=== PATIENT | male | born 1980 | race American Indian/Alaskan Native ===

== ENCOUNTER 2022-07-11 03:57 | Inpatient (IN) | payer SELFPAY ==
[2022-07-11] MEDS ORDERED: SODIUM CHLORIDE 0.9% 1000 ML 1,000 ML IV ONE (04:56)
[2022-07-11 05:30] LABS: Basophils % (Auto) 0.6 % (0.0-1.8); Eosinophils % (Auto) 0.2 % (0.0-4.3); Hematocrit 48.8 % (35.5-45.6); Hemoglobin 16.2 gm/dl (11.8-15.2); Lymphocytes # (Auto) 1.2 K/mm3 (1.2-5.4); Lymphocytes % (Auto) 13.3 % (13.4-35.0); Mean Corpuscular HGB Conc 33 % (32-34); Mean Corpuscular Volume 95 fl (84-94); Monocytes # (Auto) 0.4 K/mm3 (0.0-0.8); Monocytes % (Auto) 4.2 % (0.0-7.3); Platelet Count 229 K/mm3 (140-440); Red Blood Count 5.12 M/mm3 (3.65-5.03); Red Cell Distribution Width 13.7 % (13.2-15.2)
[2022-07-11 05:52] LABS: Alanine Aminotransferase 35 units/L (7-56); BUN/Creatinine Ratio 22; Blood Urea Nitrogen 28 mg/dL (9-20); Calcium 9.6 mg/dL (8.4-10.2); Hemolysis Index 24
--- NOTE | 2022-07-11 05:53 | Event Note ---
Date: 07/11/22 (') 42 years old with diabetes on insulin ran out of insulin and his blood sugar was high , no nausea or vomiting
--- NOTE | 2022-07-11 06:00 | XRay Report ---
CHEST 1 VIEW INDICATION / CLINICAL INFORMATION: Chest Pain. FINDINGS: SUPPORT DEVICES: None. HEART / MEDIASTINUM: No significant abnormality. LUNGS / PLEURA: No significant pulmonary or pleural abnormality. No pneumothorax. ADDITIONAL FINDINGS: No significant additional findings. IMPRESSION: 1. No acute findings. Signer Name: Ryan Tipton MD Signed: 07/11/2022 5:55 AM Workstation Name: [id number]
[2022-07-11 06:32] LABS: Color,Urine Colorless (Yellow)
[2022-07-11 06:33] LABS: RBC,Urine < 1.0 /HPF (0.0-6.0); WBC,Urine < 1.0 /HPF (0.0-6.0)
[2022-07-11 06:34] LABS: INR 0.98 (0.87-1.13)
[2022-07-11 06:41] LABS: Amphetamine Screen,Urine Negative; Benzodiazepines Screen,Urine Negative; Cannabinoid Screen,Urine Negative; Cocaine Screen,Urine Negative; Methadone Screen,Urine Negative; Opiate Screen,Urine Negative
[2022-07-11] MEDS ORDERED: SODIUM CHLORIDE 0.9% 1000 ML 2,000 ML IV ONE (06:57)
[2022-07-11] MEDS ORDERED: DEXTROSE 50% IN WATER (25GM) 50 ML SYRINGE IV PRN (06:57)
[2022-07-11] MEDS ORDERED: INSULIN REGULAR, HUMAN 100 UNITS/1 ML IV ONE (06:57)
[2022-07-11] MEDS ORDERED: METOCLOPRAMIDE 10 MG/2 ML INJ IV ONE (06:57)
[2022-07-11] MEDS ORDERED: INSULIN REGULAR, HUMAN 100 UNITS in SODIUM CHLORIDE 0.9% 99 ML IV SCH (07:00)
[2022-07-11] MEDS ORDERED: D5W/0.45% NACL/KCL 20 MEQ 20 MEQ/1,000 ML BAG IV SCH (07:00)
--- NOTE | 2022-07-11 07:02 | Emergency Department Report ---
ED General Adult HPI - General Chief complaint: Hyperglycemia Stated complaint: HYPERGLYCEMIA Time Seen by Provider: 07/11/22 06:52 Source: patient, EMS ( EMS documentation not available at time of chart dictation ), RN notes reviewed Mode of arrival: Stretcher Limitations: No Limitations - History of Present Illness Initial comments: The patient was evaluated in the emergency department for symptoms described in the history of present illness. He/she was evaluated in the context of the global COVID-19 pandemic, which necessitated consideration that the patient might be at risk for infection with the virus that causes COVID-19. Institutional protocols and algorithms that pertain to the evaluation of patients at risk for COVID-19 are in a state of rapid change based on information released by regulatory bodies including the CDC and federal and state organizations. These policies and algorithms were followed during the patient's care in the emergency department. Please note that these policies, procedures and recommendations changed on a rapid basis. The patient is a 42-year-old gentleman who states that he is a type II diabetic, who presents to the department today with a complaint of feeling thirsty, polyuria, polydipsia, nausea, vomiting, generalized malaise and weakness. Reports recent diet and lifestyle indiscretions, consumed beer, and orange juice, feels like his blood sugar is high. Denies physical pain at this time. -: Gradual, days(s) Consistency: constant Improves with: medication, rest Worsens with: eating - Related Data Allergies Allergy/AdvReac Type Severity Reaction Status Date / Time No Known Allergies Allergy Unverified 07/11/22 04:46 ED Review of Systems ROS: Stated complaint: HYPERGLYCEMIA Other details as noted in HPI Constitutional: malaise, weakness. denies: fever Eyes: denies: eye discharge ENT: denies: epistaxis Respiratory: denies: cough Cardiovascular: denies: chest pain Gastrointestinal: nausea, vomiting. denies: abdominal pain Genitourinary: frequency Musculoskeletal: denies: myalgia Neurological: weakness. denies: headache ED Past Medical Hx - Past Medical History Previous Medical History?: Yes Hx Diabetes: Yes - Surgical History Past Surgical History?: No - Social History Smoking Status: Never Smoker Substance Use Type: None ED Physical Exam - General Limitations: No Limitations General appearance: alert, in no apparent distress - Head Head exam: Present: atraumatic, normocephalic - Eye Eye exam: Present: normal appearance, EOMI. Absent: nystagmus - ENT ENT exam: Present: normal exam, mucous membranes dry, normal external ear exam - Neck Neck exam: Present: normal inspection, full ROM. Absent: tenderness, men ingismus - Respiratory Respiratory exam: Present: normal lung sounds bilaterally. Absent: respiratory distress, wheezes, rales, rhonchi, stridor, decreased breath sounds - Cardiovascular Cardiovascular Exam: Present: regular rate, normal rhythm, normal heart sounds. Absent: bradycardia, tachycardia, irregular rhythm, systolic murmur, diastolic murmur, rubs, gallop - GI/Abdominal GI/Abdominal exam: Present: soft. Absent: distended, tenderness, guarding, rebound, rigid, pulsatile mass - Rectal Rectal exam: Present: deferred - Extremities Exam Extremities exam: Present: normal inspection, full ROM, other (2+ pulses noted in the bilateral upper and lower extremities. There is no palpable cord. negative Homans sign. Muscular compartments are soft. The pelvis is stable.). Absent: pedal edema, calf tenderness - Back Exam Back exam: Present: normal inspection, full ROM. Absent: tenderness, CVA tenderness (R), CVA tenderness (L), paraspinal tenderness, vertebral tenderness - Neurological Exam Neurological exam: Present: alert, oriented X3, other (No facial droop. Tongue midline. Extraocular movements intact bilaterally. Facial sensation intact to light touch in V1, V2, V3 distribution bilaterally. 5 and a 5 strength in 4 extremities. Sensation intact to light touch in 4 extremities.). Absent: motor sensory deficit - Psychiatric Psychiatric exam: Present: normal affect, normal mood - Skin Skin exam: Present: warm, dry, intact, normal color. Absent: rash ED Course Vital Signs 07/11/22 07/11/22 07/11/22 03:58 05:06 05:16 Temperature 98.1 F Pulse Rate 91 H 88 Respiratory 18 17 Rate Blood Pressure 122/71 O2 Sat by Pulse 98 74 L 96 Oximetry 07/11/22 05:30 Temperature Pulse Rate 87 Respiratory 17 Rate Blood Pressure O2 Sat by Pulse 98 Oximetry ED Medical Decision Making - Lab Data Result diagrams: 07/11/22 04:56 07/11/22 07:06 Vital Signs 07/11/22 07/11/22 07/11/22 03:58 05:06 05:16 Temperature 98.1 F Pulse Rate 91 H 88 Respiratory 18 17 Rate Blood Pressure 122/71 O2 Sat by Pulse 98 74 L 96 Oximetry 07/11/22 05:30 Temperature Pulse Rate 87 Respiratory 17 Rate Blood Pressure O2 Sat by Pulse 98 Oximetry Lab Results 07/11/22 07/11/22 07/11/22 Range/Units 04:25 04:56 04:56 WBC 8.9 (4.5-11.0) K/mm3 RBC 5.12 H (3.65-5.03) M/mm3 Hgb 16.2 H (11.8-15.2) gm/dl Hct 48.8 H (35.5-45.6) % MCV 95 H (84-94) fl MCH 32 (28-32) pg MCHC 33 (32-34) % RDW 13.7 (13.2-15.2) % Plt Count 229 (140-440) K/mm3 Lymph % (Auto) 13.3 L (13.4-35.0) % [place] % (Auto) 4.2 (0.0-7.3) % Eos % (Auto) 0.2 (0.0-4.3) % Baso % (Auto) 0.6 (0.0-1.8) % Lymph # (Auto) 1.2 (1.2-5.4) K/mm3 [place] # (Auto) 0.4 (0.0-0.8) K/mm3 Eos # (Auto) 0.0 (0.0-0.4) K/mm3 Baso # (Auto) 0.0 (0.0-0.1) K/mm3 Seg Neutrophils % 81.7 H (40.0-70.0) % Seg Neutrophils # 7.3 (1.8-7.7) K/mm3 PT (12.2-14.9) Sec. INR (0.87-1.13) Sodium 133 L (137-145) mmol/L Potassium 5.7 H (3.6-5.0) mmol/L Chloride 89.8 L (98-107) mmol/L Carbon Dioxide 12 L (22-30) mmol/L Anion Gap 37 mmol/L BUN 28 H (9-20) mg/dL Creatinine 1.3 (0.8-1.3) mg/dL Estimated GFR > 60 ml/min BUN/Creatinine Ratio 22 % Glucose 671 H* (75-100) mg/dL POC Glucose 599 H (70-105) mg/dL Calcium 9.6 (8.4-10.2) mg/dL Total Bilirubin 0.90 (0.1-1.2) mg/dL AST 21 (5-40) units/L ALT 35 (7-56) units/L Alkaline Phosphatase 176 H (35-129) units/L Troponin T (0.00-0.029) ng/mL Total Protein 7.4 (6.3-8.2) g/dL Albumin 5.0 (3.9-5) g/dL Albumin/Globulin Ratio 2.1 % Urine Color (Yellow) Urine Turbidity (Clear) Specific [place] (Man) (1.003-1.030) Ur Protein (Man) (Negative) mg/dL Ur Ketones (Man) (Negative) Ur Nitrite (Man) (Negative) Urine Bilirubin (Man) (Negative) Leukocyte Esterase (Man) (Negative) Urine WBC (Auto) (0.0-6.0) /HPF Urine RBC (Auto) (0.0-6.0) /HPF Urine RBC (Manual) (Negative) Urine Opiates Screen Urine Methadone Screen Ur Barbiturates Screen Ur Phencyclidine Scrn Ur Amphetamines Screen U Benzodiazepines Scrn Urine Cocaine Screen U Marijuana (THC) Screen Drugs of Abuse Note 07/11/22 07/11/22 07/11/22 Range/Units 05:45 05:45 Unknown WBC (4.5-11.0) K/mm3 RBC (3.65-5.03) M/mm3 Hgb (11.8-15.2) gm/dl Hct (35.5-45.6) % MCV (84-94) fl MCH (28-32) pg MCHC (32-34) % RDW (13.2-15.2) % Plt Count (140-440) K/mm3 Lymph % (Auto) (13.4-35.0) % [place] % (Auto) (0.0-7.3) % Eos % (Auto) (0.0-4.3) % Baso % (Auto) (0.0-1.8) % Lymph # (Auto) (1.2-5.4) K/mm3 [place] # (Auto) (0.0-0.8) K/mm3 Eos # (Auto) (0.0-0.4) K/mm3 Baso # (Auto) (0.0-0.1) K/mm3 Seg Neutrophils % (40.0-70.0) % Seg Neutrophils # (1.8-7.7) K/mm3 PT 14.1 (12.2-14.9) Sec. INR 0.98 (0.87-1.13) Sodium (137-145) mmol/L Potassium (3.6-5.0) mmol/L Chloride (98-107) mmol/L Carbon Dioxide (22-30) mmol/L Anion Gap mmol/L BUN (9-20) mg/dL Creatinine (0.8-1.3) mg/dL Estimated GFR ml/min BUN/Creatinine Ratio % Glucose (75-100) mg/dL POC Glucose (70-105) mg/dL Calcium (8.4-10.2) mg/dL Total Bilirubin (0.1-1.2) mg/dL AST (5-40) units/L ALT (7-56) units/L Alkaline Phosphatase (35-129) units/L Troponin T < 0.010 (0.00-0.029) ng/mL Total Protein (6.3-8.2) g/dL Albumin (3.9-5) g/dL Albumin/Globulin Ratio % Urine Color Colorless (Yellow) Urine Turbidity Clear (Clear) Specific [place] (Man) 1.010 (1.003-1.030) Ur Protein (Man) Negative (Negative) mg/dL Ur Ketones (Man) 3+ (Negative) Ur Nitrite (Man) Negative (Negative) Urine Bilirubin (Man) Negative (Negative) Leukocyte Esterase (Man) Negative (Negative) Urine WBC (Auto) < 1.0 (0.0-6.0) /HPF Urine RBC (Auto) < 1.0 (0.0-6.0) /HPF Urine RBC (Manual) Negative (Negative) Urine Opiates Screen Urine Methadone Screen Ur Barbiturates Screen Ur Phencyclidine Scrn Ur Amphetamines Screen U Benzodiazepines Scrn Urine Cocaine Screen U Marijuana (THC) Screen Drugs of Abuse Note 07/11/22 Range/Units Unknown WBC (4.5-11.0) K/mm3 RBC (3.65-5.03) M/mm3 Hgb (11.8-15.2) gm/dl Hct (35.5-45.6) % MCV (84-94) fl MCH (28-32) pg MCHC (32-34) % RDW (13.2-15.2) % Plt Count (140-440) K/mm3 Lymph % (Auto) (13.4-35.0) % [place] % (Auto) (0.0-7.3) % Eos % (Auto) (0.0-4.3) % Baso % (Auto) (0.0-1.8) % Lymph # (Auto) (1.2-5.4) K/mm3 [place] # (Auto) (0.0-0.8) K/mm3 Eos # (Auto) (0.0-0.4) K/mm3 Baso # (Auto) (0.0-0.1) K/mm3 Seg Neutrophils % (40.0-70.0) % Seg Neutrophils # (1.8-7.7) K/mm3 PT (12.2-14.9) Sec. INR (0.87-1.13) Sodium (137-145) mmol/L Potassium (3.6-5.0) mmol/L Chloride (98-107) mmol/L Carbon Dioxide (22-30) mmol/L Anion Gap mmol/L BUN (9-20) mg/dL Creatinine (0.8-1.3) mg/dL Estimated GFR ml/min BUN/Creatinine Ratio % Glucose (75-100) mg/dL POC Glucose (70-105) mg/dL Calcium (8.4-10.2) mg/dL Total Bilirubin (0.1-1.2) mg/dL AST (5-40) units/L ALT (7-56) units/L Alkaline Phosphatase (35-129) units/L Troponin T (0.00-0.029) ng/mL Total Protein (6.3-8.2) g/dL Albumin (3.9-5) g/dL Albumin/Globulin Ratio % Urine Color (Yellow) Urine Turbidity (Clear) Specific [place] (Man) (1.003-1.030) Ur Protein (Man) (Negative) mg/dL Ur Ketones (Man) (Negative) Ur Nitrite (Man) (Negative) Urine Bilirubin (Man) (Negative) Leukocyte Esterase (Man) (Negative) Urine WBC (Auto) (0.0-6.0) /HPF Urine RBC (Auto) (0.0-6.0) /HPF Urine RBC (Manual) (Negative) Urine Opiates Screen Negative Urine Methadone Screen Negative Ur Barbiturates Screen Negative Ur Phencyclidine Scrn Negative Ur Amphetamines Screen Negative U Benzodiazepines Scrn Negative Urine Cocaine Screen Negative U Marijuana (THC) Screen Negative Drugs of Abuse Note Disclamer - EKG Data -: EKG Interpreted by Ok EKG shows normal: sinus rhythm Rate: normal - EKG Data When compared to previous EKG there are: previous EKG unavailable 07/11/22 07:01 The EKG is interpreted at 06: 42 Sinus rhythm, 97 bpm. Normal axis, normal P wave axis, QTC 4 5 3 ms, left ventricular hypertrophy, high left ventricular voltage. This is an abnormal EKG. This is not a STEMI. - Radiology Data Radiology results: report reviewed, image reviewed CHEST 1 VIEW INDICATION / CLINICAL INFORMATION: Chest Pain. FINDINGS: SUPPORT DEVICES: None. HEART / MEDIASTINUM: No significant abnormality. LUNGS / PLEURA: No significant pulmonary or pleural abnormality. No pneumothorax. ADDITIONAL FINDINGS: No significant additional findings. IMPRESSION: 1. No acute findings. Signer Name: Ryan Tipton MD Signed: 07/11/2022 4:55 AM Workstation Name: [id number] - Medical Decision Making Differential diagnosis, including but not limited to: Dehydration, electrolyte derangement, diabetic ketoacidosis Assessment and plan: 42-year-old gentleman with diabetic ketoacidosis. He is afebrile, with reassuring vital signs, and protecting his airway. He is not encephalopathic at this time. Recommend admission to the medical service for DKA. Patient is agreeable to admission hospitalization. No active vomiting at this time. Tolerating ice chips. Lung sounds clear. Elevated potassium reviewed and appreciated, this is likely transcellular shift. Suspect that whole-body potassium is depleted. Start IV fluids, as needed Reglan, insulin bolus, insulin drip. Discussed patient's history, physical, laboratory studies and clinical impression with critical care physician, Dr. Caruso, as well as hospital physician, Dr. Morales. They will follow and manage this patient, and he will go to the ICU for decompensated DKA. All questions answered. Patient is agreeable to admission and hospitalization. Critical Care Time: Yes Critical care time in (mins) excluding proc time.: 35 Critical care attestation.: If time is entered above; I have spent that time in minutes in the direct care of this critically ill patient, excluding procedure time. ED Disposition Clinical Impression: Diabetic ketoacidosis, Dehydration Disposition: 09 ADMITTED INPATIENT Is pt being admited?: Yes Does the pt Need Aspirin: No Condition: Critical Instructions: Diabetic Ketoacidosis (ED)
[2022-07-11 07:42] LABS: BUN/Creatinine Ratio 19; Blood Urea Nitrogen 29 mg/dL (9-20); Calcium 9.1 mg/dL (8.4-10.2); Hemolysis Index 30
[2022-07-11] MEDS ORDERED: ACETAMINOPHEN 650 MG RECT SUPP PR PRN (07:54)
[2022-07-11] MEDS ORDERED: MORPHINE 2 MG/1 ML INJ IV PRN (07:54)
[2022-07-11 09:16] LABS: BUN/Creatinine Ratio 19; Blood Urea Nitrogen 29 mg/dL (9-20); Calcium 9.1 mg/dL (8.4-10.2); Hemolysis Index 20
--- NOTE | 2022-07-11 09:23 | History and Physical Report ---
History of Present Illness History of present illness: HPI: 42-year-old male with type 2 diabetes on insulin presenting to our facility with complaint of nausea, vomiting. He states that he was drinking on Monday and subsequently started to feel ill. Patient had a associated symptoms of polydipsia, polyuria, generalized malaise, weakness. He states that he had been running low on his home insulin. Patient states that he takes Humalog 35 units every morning and 15 units every afternoon. He follows with physicians at [facility] for his diabetes care. Remainder of ROS negative except for stated above ED Course: Initiation of DKA protocol PMHx: Type 2 diabetes mellitus on insulin, possibly MASHA PSHx: Denies FHx: Both father and paternal grandmother had type 2 diabetes SHx: Tobacco use-9 to 10 cigarettes/day ETOH Use-admits heavy use, 7-10 drinks on occasion Recreational Drug Use-denies Vaccinated for coronavirus Medications and Allergies Allergies Allergy/AdvReac Type Severity Reaction Status Date / Time No Known Allergies Allergy Unverified 07/11/22 04:46 Active Meds: Active Medications Acetaminophen (Acetaminophen 650 Mg Rect Supp) 650 mg [place] Q6H PRN PRN Reason: Pain MILD(1-3)/Fever >100.5/EPPS Dextrose (Dextrose 50% In Water (25gm) 50 Ml Syringe) 0 ml IV Q30MIN PRN; Protocol PRN Reason: Hypoglycemia Enoxaparin Sodium (Enoxaparin 40 Mg/0.4 Ml Inj) 40 mg SUB-Q QDAY KOURTNEY Insulin Human Regular 100 (units/ Sodium Chloride) 100 mls @ 1 mls/hr IV TITR KOURTNEY; Protocol Last Admin: 07/11/22 09:19 Dose: 8 units/hr, 8 mls/hr Potassium Chloride/Dextrose/Sod Cl (D5w/0.45% Nacl/Kcl 20 Meq) 20 meq in 1,000 mls @ 125 mls/hr IV DIRECT KOURTNEY Morphine Sulfate (Morphine 2 Mg/1 Ml Inj) 2 mg IV Q4H PRN PRN Reason: Pain, Moderate (4-6) Sodium Chloride (Sodium Chloride 0.9% 10 Ml Flush Syringe) 10 ml IV PRN NR Stop: 07/11/22 12:00 Sodium Chloride (Sodium Chloride 0.9% 10 Ml Flush Syringe) 10 ml IV BID KOURTNEY Sodium Chloride (Sodium Chloride 0.9% 10 Ml Flush Syringe) 10 ml IV PRN PRN PRN Reason: LINE FLUSH Review of Systems All systems: negative (Negative except for stated in HPI) Exam - Physical Exam Narrative exam: Physical Exam: VITAL SIGNS: Reviewed. GENERAL: The patient appears normally developed, Vital signs as documented. HEAD: No signs of head trauma. EYES: Pupils are equal. Extraocular motions intact. EARS: Hearing grossly intact. MOUTH: Oropharynx is normal. NECK: No adenopathy, no JVD. CHEST: Chest with clear breath sounds bilaterally. No wheezes, rales, or rhonchi. CARDIAC: Regular rate and rhythm. S1 and S2, without murmurs, gallops, or rubs. VASCULAR: No Edema. Peripheral pulses normal and equal in all extremities. ABDOMEN: Soft, non tender and non distended. No rebound or guarding, and no masses palpated. Bowel Sounds normal. MUSCULOSKELETAL: Good range of motion of all major joints. Extremities without clubbing, cyanosis or edema. NEUROLOGIC EXAM: Alert and oriented x 4. no focal sensory or strength deficits. PSYCHIATRIC: Mood normal. SKIN: detail exam as documented in skin assessment - Constitutional Vitals: Temp Pulse Resp BP Pulse Ox 98.1 F 87 19 120/50 93 07/11/22 03:58 07/11/22 08:16 07/11/22 08:16 07/11/22 08:16 07/11/22 08:16 HEART Score - HEART Score Troponin: Troponin T < 0.010 ng/mL (0.00-0.029) 07/11/22 05:45 Results - Labs CBC & Chem 7: 07/11/22 04:56 07/11/22 10:16 Labs: Laboratory Last Values WBC 8.9 K/mm3 (4.5-11.0) 07/11/22 04:56 RBC 5.12 M/mm3 (3.65-5.03) H 07/11/22 04:56 Hgb 16.2 gm/dl (11.8-15.2) H 07/11/22 04:56 Hct 48.8 % (35.5-45.6) H 07/11/22 04:56 MCV 95 fl (84-94) H 07/11/22 04:56 MCH 32 pg (28-32) 07/11/22 04:56 MCHC 33 % (32-34) 07/11/22 04:56 RDW 13.7 % (13.2-15.2) 07/11/22 04:56 Plt Count 229 K/mm3 (140-440) 07/11/22 04:56 Lymph % (Auto) 13.3 % (13.4-35.0) L 07/11/22 04:56 [place] % (Auto) 4.2 % (0.0-7.3) 07/11/22 04:56 Eos % (Auto) 0.2 % (0.0-4.3) 07/11/22 04:56 Baso % (Auto) 0.6 % (0.0-1.8) 07/11/22 04:56 Lymph # (Auto) 1.2 K/mm3 (1.2-5.4) 07/11/22 04:56 [place] # (Auto) 0.4 K/mm3 (0.0-0.8) 07/11/22 04:56 Eos # (Auto) 0.0 K/mm3 (0.0-0.4) 07/11/22 04:56 Baso # (Auto) 0.0 K/mm3 (0.0-0.1) 07/11/22 04:56 Seg Neutrophils % 81.7 % (40.0-70.0) H 07/11/22 04:56 Seg Neutrophils # 7.3 K/mm3 (1.8-7.7) 07/11/22 04:56 PT 14.1 Sec. (12.2-14.9) 07/11/22 05:45 INR 0.98 (0.87-1.13) 07/11/22 05:45 VBG pH 7.174 (7.320-7.420) L* 07/11/22 07:06 Sodium 132 mmol/L (137-145) L 07/11/22 07:06 Potassium 6.0 mmol/L (3.6-5.0) H 07/11/22 07:06 Chloride 90.9 mmol/L (98-107) L 07/11/22 07:06 Carbon Dioxide 12 mmol/L (22-30) L 07/11/22 07:06 Anion Gap 35 mmol/L 07/11/22 07:06 BUN 29 mg/dL (9-20) H 07/11/22 07:06 Creatinine 1.5 mg/dL (0.8-1.3) H 07/11/22 07:06 Estimated GFR > 60 ml/min 07/11/22 07:06 BUN/Creatinine Ratio 19 % 07/11/22 07:06 Glucose 634 mg/dL (75-100) H* 07/11/22 07:06 POC Glucose 599 mg/dL (70-105) H 07/11/22 04:25 Ketones Quantitative Moderate (Negative) 07/11/22 05:45 Calcium 9.1 mg/dL (8.4-10.2) 07/11/22 07:06 Phosphorus 5.40 mg/dL (2.5-4.5) H 07/11/22 07:06 Magnesium 2.40 mg/dL (1.7-2.3) H 07/11/22 07:06 Total Bilirubin 0.90 mg/dL (0.1-1.2) 07/11/22 04:56 AST 21 units/L (5-40) 07/11/22 04:56 ALT 35 units/L (7-56) 07/11/22 04:56 Alkaline Phosphatase 176 units/L (35-129) H 07/11/22 04:56 Troponin T < 0.010 ng/mL (0.00-0.029) 07/11/22 05:45 C-Reactive Protein 0.30 mg/dL (0.00-1.30) 07/11/22 05:45 Total Protein 7.4 g/dL (6.3-8.2) 07/11/22 04:56 Albumin 5.0 g/dL (3.9-5) 07/11/22 04:56 Albumin/Globulin Ratio 2.1 % 07/11/22 04:56 Lipase 9 units/L (13-60) L 07/11/22 05:45 Urine Color Colorless (Yellow) 07/11/22 Unknown Urine Turbidity Clear (Clear) 07/11/22 Unknown Specific [place] (Man) 1.010 (1.003-1.030) 07/11/22 Unknown Ur Protein (Man) Negative mg/dL (Negative) 07/11/22 Unknown Ur Ketones (Man) 3+ (Negative) 07/11/22 Unknown Ur Nitrite (Man) Negative (Negative) 07/11/22 Unknown Urine Bilirubin (Man) Negative (Negative) 07/11/22 Unknown Leukocyte Esterase (Man) Negative (Negative) 07/11/22 Unknown Urine WBC (Auto) < 1.0 /HPF (0.0-6.0) 07/11/22 Unknown Urine RBC (Auto) < 1.0 /HPF (0.0-6.0) 07/11/22 Unknown Urine RBC (Manual) Negative (Negative) 07/11/22 Unknown Urine Opiates Screen Negative 07/11/22 Unknown Urine Methadone Screen Negative 07/11/22 Unknown Ur Barbiturates Screen Negative 07/11/22 Unknown Ur Phencyclidine Scrn Negative 07/11/22 Unknown Ur Amphetamines Screen Negative 07/11/22 Unknown U Benzodiazepines Scrn Negative 07/11/22 Unknown Urine Cocaine Screen Negative 07/11/22 Unknown U Marijuana (THC) Screen Negative 07/11/22 Unknown Drugs of Abuse Note Disclamer 07/11/22 Unknown Plasma/Serum Alcohol < 0.01 % (0-0.07) 07/11/22 07:06 Assessment and Plan Assessment and plan: Assessment and Plan: #Diabetic ketoacidosis #Metabolic acidosis #Type 2 diabetes with hyperglycemia #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 -Recent alcohol use combined with patient running out of home insulin - A, BG 634, ketonuria, VB.17 - weakness, nausea, vomiting, polyuria, polydipsia - DKA protocol: IV insulin, IVF. - NPO until AG closes - once AG closed (< 14), can start weight-based Lantus. Please run insulin gtt 1hr after lantus admin. Can initiate diabetic diet as well -Home regimen Humalog 35 units every morning/15 units every afternoon. Would recommend transitioning to this eventually at discharge and prescription with refills at the time of discharge - accuchecks q1 hr until AG closed - BMP q4hr until AG closed #Acute kidney injury due to vasomotor nephropathy #Hyperkalemia #Pseudohyponatremia #Metabolic acidosis -Secondary to vomiting and underlying DKA -Aggressive IV fluid rehydration -Correction of hyperkalemia with IV insulin only at this time. No EKG changes notable -Trend electrolytes on serial BMP #Hemoconcentration -Hemoglobin 16, likely from dehydration #Alcohol abuse - behavioral health counseling administered which included education on benefits of alcohol cessation as well as options for quitting. +15 min. #Nicotine Abuse +15 min smoking/nicotine abuse cessation counseling. Advised on quitting strategies as well as benefits to overall health. #Preventative health care - preventative health counseling regarding management of life stressors, medication compliance and overall effect of chronic medical conditions on overall health. Encourage patient to follow up closely with with OP providers +30 minutes. The high probability of a clinically significant, sudden or life threatening deterioration of the [multi] system(s) required my full and direct attention, intervention and personal management. The aggregate critical care time was [90] minutes. This time is in addition to time spent performing reported procedures b ut includes the following: [x] Data Review and interpretation [x] Patient assessment and monitoring of vital signs [x] Documentation [x] Medication orders and management
[2022-07-11] MEDS ORDERED: D5W/0.45% NACL 1,000 ML IV PRN (09:44)
[2022-07-11] MEDS ORDERED: D5W/0.45% NACL 1,000 ML IV SCH (10:00)
[2022-07-11] MEDS ORDERED: SODIUM CHLORIDE 0.45% 1000 ML 1,000 ML IV SCH (10:00)
[2022-07-11 10:58] LABS: BUN/Creatinine Ratio 18; Blood Urea Nitrogen 27 mg/dL (9-20); Calcium 8.4 mg/dL (8.4-10.2); Hemolysis Index 1
[2022-07-11] MEDS: ENOXAPARIN 40 MG/0.4 ML INJ SUB-Q SCH (12:45)
[2022-07-11 20:31] LABS: BUN/Creatinine Ratio 18; Blood Urea Nitrogen 22 mg/dL (9-20); Calcium 8.5 mg/dL (8.4-10.2); Hemolysis Index 7
[2022-07-11] MEDS ORDERED: INSULIN GLARGINE 100 UNITS/ML SUB-Q STA (21:43)
[2022-07-12] MEDS: INSULIN LISPRO 100 UNIT/ML SUB-Q SCH ×4 (02:06→16:44)
[2022-07-12 05:11] LABS: BUN/Creatinine Ratio 24; Blood Urea Nitrogen 26 mg/dL (9-20); Calcium 7.8 mg/dL (8.4-10.2); Hemolysis Index 5
[2022-07-12] MEDS ORDERED: DEXTROSE 50% IN WATER (25GM) 50 ML SYRINGE IV PRN (08:49)
[2022-07-12] MEDS: ENOXAPARIN 40 MG/0.4 ML INJ SUB-Q SCH (09:36)
[2022-07-12] MEDS ORDERED: metFORMIN 500 MG TAB PO SCH ×2 (10:00→17:00)
--- NOTE | 2022-07-12 12:54 | Discharge Summary ---
<FELICIA COVINGTON - Last Filed: 07/12/22 19:42> Providers - Providers Date of Admission: 07/11/22 07:54 Date of discharge: 07/12/22 Attending physician: KEILA HENLEY MD 07/11/22 06:57 Consult to Physician [CONS] Stat Comment: Consulting Provider: VIKAS VARGAS Physician Instructions: Reason For Exam: dka 07/11/22 07:54 Consult to Dietitian/Nutrition [CONS] Routine Physician Instructions: Reason For Exam: Reason for Consult: Diet education Primary care physician: APPLICATION PROCESSOR Hospitalization Reason for admission: Diabetic Ketoacisosis (DKA) Condition: Stable Hospital course: 42-year-old male with type 2 diabetes on insulin and HTN admittted for DKA #Diabetic ketoacidosis #Metabolic acidosis #Type 2 diabetes with hyperglycemia #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 - Recent alcohol use combined with patient running out of home insulin - A, BG 634, ketonuria, VB.17 - weakness, nausea, vomiting, polyuria, polydipsia - S/p DKA protocol: IV insulin, IVF. - Home diabetic regimen resumed - Tolerating PO intake, n/v resolved #Acute kidney injury due to vasomotor nephropathy #Hyperkalemia #Pseudohyponatremia #Metabolic acidosis -Secondary to vomiting and underlying DKA -Aggressive IV fluid rehydration -Correction of hyperkalemia with IV insulin only at this time. No EKG changes notable -Trend electrolytes on serial BMP #Hemoconcentration -Hemoglobin 16, likely from dehydration #Alcohol abuse - behavioral health counseling administered which included education on benefits of alcohol cessation as well as options for quitting. +15 min. #Nicotine Abuse +15 min smoking/nicotine abuse cessation counseling. Advised on quitting strategies as well as benefits to overall health. #Preventative health care - preventative health counseling regarding management of life stressors, medication compliance and overall effect of chronic medical conditions on overall health. Encourage patient to follow up closely with with OP providers +30 minutes. Disposition: 01 HOME / SELF CARE / HOMELESS Final Discharge Diagnosis (Prints w/discharge instructions): Uncontrolled Type 2 Diabetes Mellitus Time spent for discharge: 35 Core Measure Documentation - Palliative Care Palliative Care/ Comfort Measures: Not Applicable - Core Measures Any of the following diagnoses?: none Exam - Constitutional Vitals: Temp Pulse Resp BP Pulse Ox 97.9 F 58 L 18 122/76 88 07/12/22 11:55 07/12/22 12:10 07/12/22 12:10 07/12/22 12:10 07/12/22 09:40 General appearance: Present: no acute distress, well-nourished - EENT Eyes: Present: PERRL ENT: hearing intact - Neck Neck: Present: normal ROM - Respiratory Respiratory effort: normal Respiratory: bilateral: CTA - Cardiovascular Rhythm: regular Heart Sounds: Present: S1 & S2 - Extremities Extremities: no ischemia, pulses intact, pulses symmetrical Peripheral Pulses: within normal limits - Abdominal General gastrointestinal: Present: soft, non-distended, normal bowel sounds Male genitourinary: Present: deferred - Rectal Rectal Exam: deferred - Integumentary Integumentary: Present: clear, warm, dry - Musculoskeletal Musculoskeletal: strength equal bilaterally - Psychiatric Psychiatric: appropriate mood/affect, cooperative - Neurologic Neurologic: CNII-XII intact, moves all extremities - Allied Health Allied health notes reviewed: nursing, case management Plan Activity: no restrictions Diet: low fat, low cholesterol, low salt, diabetic, low carbohydrate Wound: open to air Care Plan Goals: -Take you medications as prescribed, stay on top of your refills and prescriptions so you don't run out of medications -Follow a balance diet -Follow up with your primary care doctor at [facility] within 7 to 14 days after discharge If your symptoms return visit your nearest emergency department for further chaim luation and treatment Follow up with: PRIMARY CAREMD [Primary Care Provider] - 7 Days Forms: Work/School Excuse Out Patient, Work/School Release Form Prescriptions: Insulin Lispro Protamin/Lispro [Insulin Lispro Mix 75-25 Kwkpn] 15 unit SQ QHS 90 Days Insulin Lispro Protamin/Lispro [Insulin Lispro Mix 75-25 Kwkpn] 35 unit SQ QDAY 90 Days Metformin HCl [metFORMIN] 1,000 mg PO BID 90 Days Lisinopril [Zestril TAB] 2.5 mg PO QDAY 30 Days <KEILA HENLEY - Last Filed: 07/13/22 07:26> Providers - Providers Date of Admission: 07/11/22 07:54 Attending physician: KEILA HENLEY MD 07/11/22 06:57 Consult to Physician [CONS] Stat Comment: Consulting Provider: VIKAS VARGAS Physician Instructions: Reason For Exam: dka 07/11/22 07:54 Consult to Dietitian/Nutrition [CONS] Routine Physician Instructions: Reason For Exam: Reason for Consult: Diet education Primary care physician: APPLICATION PROCESSOR Hospitalization Hospital course: I saw and evaluated the patient. I agree with the findings and the plan of care as documented in the Nurse Practitioner's~note, with the following corrections and additions. Exam - Constitutional Vitals: Temp Pulse Resp BP Pulse Ox 97.9 F 68 16 123/62 98 07/12/22 11:55 07/12/22 16:00 07/12/22 16:00 07/12/22 16:00 07/12/22 16:00
--- NOTE | 2022-07-12 13:11 | Electrocardiograph Report ---
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
[2022-07-12 13:30] LABS: Calcium 6.6 mg/dL (8.4-10.2)
[2022-07-12 16:47] VITALS: BP 123/62
[2022-07-12] MEDS ORDERED: INSULIN GLARGINE 100 UNITS/ML SUB-Q SCH (22:00)
== END 2022-07-12 17:35 | disposition home or self-care (01) | DRG 637 ==
LOC: ED 03:57 → CC1 07:54
PROVIDERS: ADMIT Internal Medicine; ATTEND Internal Medicine
DX: E11.10 Type 2 diabetes mellitus with ketoacidosis without coma (principal); N17.0 Acute kidney failure with tubular necrosis; F10.10 Alcohol abuse, uncomplicated; E86.0 Dehydration; E11.65 Type 2 diabetes mellitus with hyperglycemia
CPT/HCPCS: 36415; 71045; 80048; 80053; 80307; 80320; 81001; 82010; 82805; 82962; 83036; 83690; 83735; 84100; 84484; 85025; 85610; 86140; 93005; G0378; J7070; Q9967; G0480; J1650; J1815; J2765; J7030